=== PATIENT | male | born 1970 | race Caucasian/White ===

== ENCOUNTER → 2018-06-26 09:28 | Outpatient (CLI) | payer BC, SELFPAY ==
[2018-06-26 11:52] LABS: Absolute Lymphocyte Count 1.25 X10^3/ul (0.83-4.51); Absolute Neutrophil Count 3.5 X10^3/uL (2.0-7.7); Basophil# 0.02 X10^3/uL; Basophil% 0.4 % (0-1); Eosinophil# 0.05 X10^3/uL; Hematocrit 43.1 % (40-54); Hemoglobin 14.5 g/dl (13.0-16.5); Lymphocyte # 1.25 X10^3/ul (4.0); Lymphocyte % 24.4 % (19-41); Mean Corp Hgb Conc 33.6 g/gl (32-36); Mean Corpuscular Hgb 29.7 pg (27.0-32.0); Mean Corpuscular Volume 88.3 fL (80-94); Mean Platelet Vol. 10.1 fl (6.2-12.0); Monocyte# 0.35 X10^3/uL; Monocyte% 6.8 % (0-10); Neutrophil # 3.45 X10^3/uL (2.7-7.7); Neutrophil % 67.4 % (47-70); POSITIVE COUNT NO; POSITIVE DIFFERENTIAL NO; POSITIVE MORPHOLOGY NO; Platelet Count 285 K/mm3 (150-450); RBC Distribution Width CV 13.1 % (11.6-14.6); Red Blood Count 4.88 M/mm3 (4.6-6.2); White Blood Count 5.1 K/mm3 (4.4-11.0)
[2018-06-26 12:15] LABS: AST(SGOT) 19 U/L (15-37); Alanine Aminotransfer ALT/SGPT 35 U/L (16-61); Alkaline Phosphatase 39 U/L (45-117); Anion Gap 10 (5-15); BUN 23 mg/dL (7-18); BUN/Creat Ratio 23.5 RATIO (10-20); Calcium,Total 8.9 mg/dL (8.5-10.1); Chloride 105 mmol/L (98-107); Creatinine, Serum 0.98 mg/dL (0.70-1.30); EST Glomerular Filtration Rate 86 mL/min (>60); Est Glom Filt Rate - Afr Amer 104 mL/min (>60); Globulin 3.9 g/dL (2.2-4.2); Glucose 102 mg/dL (74-106); PSA,Total - Annual Screen 0.53 ng/mL (0.00-4.00); Potassium 4.2 mmol/L (3.5-5.1); Protein, Total 7.9 g/dL (6.4-8.2); Sodium Level 140 mmol/L (136-145); Thyroid Stim Hormone (TSH) 2.49 uIU/mL (0.358-3.74)
== END ==
PROVIDERS: Family Provider Family Medicine; PCP Family Medicine; Visit Provider Family Medicine
DX: I10 Essential (primary) hypertension (principal); Z80.42 Family history of malignant neoplasm of prostate
CPT/HCPCS: 36415; 80053; 84153; 84443; 85025; G0103

== ENCOUNTER → 2019-06-28 10:04 | Outpatient (CLI) | payer OTHER, SELFPAY ==
[2019-06-28 12:30] LABS: Absolute Lymphocyte Count 1.11 X10^3/uL (0.83-4.51); Absolute Neutrophil Count 2.9 X10^3/uL (2.0-7.7); Basophil# 0.03 X10^3/uL; Basophil% 0.7 % (0-1); Eosinophil# 0.08 X10^3/uL; Eosinophils% 1.8 % (0-5); Hematocrit 42.6 % (40-54); Hemoglobin 13.9 g/dL (13.0-16.5); Lymphocyte # 1.11 X10^3/ul (4.0); Lymphocyte % 24.9 % (19-41); Mean Corp Hgb Conc 32.6 g/dL (32-36); Mean Corpuscular Hgb 29.7 pg (27.0-32.0); Mean Platelet Vol. 10.5 fl (6.2-12.0); Monocyte# 0.34 X10^3/uL; Monocyte% 7.6 % (0-10); NRBC Flagged by Analyzer 0 % (0-5); Neutrophil # 2.89 X10^3/uL (2.7-7.7); Platelet Count 260 K/mm3 (150-450); RBC Distribution Width SD 43.3 fl (35.1-43.9); Red Blood Count 4.68 M/mm3 (4.6-6.2); White Blood Count 4.5 K/mm3 (4.4-11.0)
[2019-06-28 12:51] LABS: ALB/GLOB Ratio 1.1 RATIO (0.9-2.4); AST(SGOT) 56 U/L (15-37); Alanine Aminotransfer ALT/SGPT 52 U/L (16-61); Albumin, Serum 3.9 g/dL (3.2-5.0); Alkaline Phosphatase 35 U/L (45-117); Anion Gap 9 (5-15); BUN 17 mg/dL (7-18); BUN/Creat Ratio 18.2 RATIO (10-20); Calcium,Total 8.8 mg/dL (8.5-10.1); Chloride 103 mmol/L (98-107); Creatinine, Serum 0.93 mg/dL (0.70-1.30); EST Glomerular Filtration Rate 91 mL/min (>60); Est Glom Filt Rate - Afr Amer 110 mL/min (>60); Globulin 3.6 g/dL (2.2-4.2); Glucose 101 mg/dL (74-106); Potassium 3.9 mmol/L (3.5-5.1); Protein, Total 7.5 g/dL (6.4-8.2); Sodium Level 141 mmol/L (136-145); Thyroid Stim Hormone (TSH) 2.68 uIU/mL (0.358-3.74)
== END ==
PROVIDERS: Family Provider Family Medicine; PCP Family Medicine; Visit Provider Family Medicine
DX: I10 Essential (primary) hypertension (principal); Z80.42 Family history of malignant neoplasm of prostate; R68.82 Decreased libido
CPT/HCPCS: 36415; 80053; 84403; 84443; 85025

== ENCOUNTER → 2019-07-05 10:42 | Outpatient (CLI) | payer OTHER, SELFPAY ==
[2019-07-05 13:35] LABS: PSA,Total - Annual Screen 0.38 ng/mL (0.00-4.00)
== END ==
PROVIDERS: Family Provider Family Medicine; PCP Family Medicine; Visit Provider Family Medicine
DX: Z12.5 Encounter for screening for malignant neoplasm of prostate (principal); Z80.42 Family history of malignant neoplasm of prostate
CPT/HCPCS: 36415; 84153; G0103

== ENCOUNTER → 2020-10-13 16:44 | Outpatient (CLI) | payer OTHER, SELFPAY ==
[2020-10-13 17:26] LABS: Basophil# 0.03 X10^3/uL; Basophil% 0.4 % (0-1); Hematocrit 46.8 % (40-54); Hemoglobin 15.2 g/dL (13.0-16.5); Lymphocyte % 25.7 % (19-41); Mean Corp Hgb Conc 32.5 g/dL (32-36); Mean Corpuscular Hgb 29.5 pg (27.0-32.0); Mean Corpuscular Volume 90.7 fL (80-94); Mean Platelet Vol. 9.9 fl (6.2-12.0); Monocyte# 0.48 X10^3/uL; Monocyte% 6.5 % (0-10); NRBC Flagged by Analyzer 0 % (0-5); Neutrophil # 4.96 X10^3/uL (2.7-7.7); Neutrophil % 67.3 % (47-70); Platelet Count 281 K/mm3 (150-450); RBC Distribution Width CV 13.2 % (11.6-14.6); RBC Distribution Width SD 44.5 fl (35.1-43.9); Red Blood Count 5.16 M/mm3 (4.6-6.2); White Blood Count 7.4 K/mm3 (4.4-11.0)
[2020-10-13 18:09] LABS: ALB/GLOB Ratio 1.1 RATIO (0.9-2.4); AST(SGOT) 18 U/L (15-37); Alanine Aminotransfer ALT/SGPT 35 U/L (16-61); Albumin, Serum 4.4 g/dL (3.2-5.0); Alkaline Phosphatase 37 U/L (45-117); Anion Gap 5 (5-15); BUN 15 mg/dL (7-18); BUN/Creat Ratio 14.7 RATIO (10-20); Calcium,Total 9.6 mg/dL (8.5-10.1); Chloride 100 mmol/L (98-107); Creatinine, Serum 1.02 mg/dL (0.70-1.30); EST Glomerular Filtration Rate 82 mL/min (>60); Est Glom Filt Rate - Afr Amer 99 mL/min (>60); Glucose 98 mg/dL (74-106); PSA,Total - Annual Screen 0.63 ng/mL (0.00-4.00); Potassium 4.2 mmol/L (3.5-5.1); Protein, Total 8.4 g/dL (6.4-8.2); Sodium Level 136 mmol/L (136-145); T4 Free Direct 0.95 ng/dL (0.76-1.46); Thyroid Stim Hormone (TSH) 3.92 uIU/mL (0.358-3.74)
== END ==
LOC: BFHLAB 16:45
PROVIDERS: PCP Family Medicine; Visit Provider Family Medicine
DX: I10 Essential (primary) hypertension (principal); R00.0 Tachycardia, unspecified; R00.2 Palpitations; Z80.42 Family history of malignant neoplasm of prostate
CPT/HCPCS: 36415; 80053; 83735; 84153; 84439; 84443; 85025; G0103

== ENCOUNTER → 2020-12-23 08:05 | Outpatient (CLI) | payer OTHER, SELFPAY ==
--- NOTE | 2020-12-23 08:09 | ECHOD_ITS ---
Reason For Study: New onset abnormal EKG Procedure This was a 2D Doppler, Color Flow transthoracic echocardiogram. The study was technically difficult. Exam performed in department. Left Ventricle Normal LV size. Left ventricular systolic function is normal. The estimated ejection fraction is 65 %. Transmitral doppler flow suggestive of impaired relaxation of left ventricle. No regional wall motion abnormalities noted. Right Ventricle Normal RV size. Normal systolic function. Atria Normal left atrium. Normal right atrium. No doppler evidence for ASD. Mitral Valve There is no mitral annular calcification. Normal mitral valve. Trivial mitral valve insufficiency. Tricuspid Valve Normal tricuspid valve. Trivial tricuspid valve insufficiency. Unable to estimate RV systolic pressure/pulmonary artery pressure due to technically difficult study. Aortic Valve Trisinus/trileaflet aortic valve. Mild focal aortic valve calcification. Pulmonic Valve The pulmonic valve is not well visualized. Great Vessels Mildly dilated aortic root. Pericardium/Pleural No pericardial effusion. MMode/2D Measurements & Calculations LVIDd: 4.2 cm IVSd: 0.90 cm Ao root diam: 4.3 cm LVIDs: 2.4 cm LVPWd: 0.96 cm LA dimension: 3.2 cm RVDd: 4.0 cm FS: 44.5 % LAV(MOD-bp): 46.1 ml LA A4 area: 15.4 cm2 RA A4 area: 15.9 cm2 LAV(MOD-bp) Indexed: 20.6 ml/m2 LAV(MOD-sp2): 44.4 ml LAV(MOD-sp4): 42.2 ml Time Measurements MV dec time: 0.39 sec Doppler Measurements & Calculations MV E max chao: 55.9 cm/sec Lat Peak E' Chao: 9.8 cm/sec Med Peak E' Chao: 7.3 cm/sec MV A max chao: 61.6 cm/sec E/E' lat: 5.7 E/E' med: 7.7 MV E/A: 0.91 MV V2 max: 64.7 cm/sec MV P1/2t max chao: 63.4 cm/sec Ao V2 max: 110.0 cm/sec MV max P.7 mmHg MV P1/2t: 76.5 msec Ao max P.9 mmHg MV V2 mean: 39.4 cm/sec MV dec slope: 242.9 cm/sec2 MV mean P.74 mmHg MVA(P1/2t): 2.9 cm2 MV V2 VTI: 19.1 cm LV V1 max: 87.6 cm/sec PA V2 max: 101.9 cm/sec LV V1 max P.2 mmHg ECHO/Echo Complete Interpretation Summary The study was technically difficult. Left ventricular systolic function is normal. The estimated ejection fraction is 65 %. Trivial mitral valve insufficiency. Trivial tricuspid valve insufficiency. Mild focal aortic valve calcification. Mildly dilated aortic root. Unable to estimate RV systolic pressure/pulmonary artery pressure due to techni robina difficult study. Transmitral doppler flow suggestive of impaired relaxation of left ventricle Ordering Physician: Jfef Collins Referring Physician: Jeff Collins Performed By: Elier Peoples RCS
== END ==
LOC: CVS 08:08
PROVIDERS: PCP Family Medicine; Referring Provider Family Medicine; Visit Provider Family Medicine
DX: R00.2 Palpitations (principal); I49.9 Cardiac arrhythmia, unspecified; I49.3 Ventricular premature depolarization
CPT/HCPCS: 93306

== ENCOUNTER → 2021-03-24 20:24 | Outpatient (CLI) | payer OTHER, SELFPAY ==
[2021-02-01 07:53] VITALS: BMI 28.0
== END ==
LOC: SL 20:24
PROVIDERS: PCP Family Medicine; Referring Provider Nurse Practitioner Acute Care; Visit Provider Nurse Practitioner Acute Care
DX: G47.33 Obstructive sleep apnea (adult) (pediatric) (principal)
CPT/HCPCS: 95811

== ENCOUNTER 2021-05-22 12:34 | Emergency (ER) | payer BC, SELFPAY ==
[2021-05-22 12:34] VITALS: BP 183/106; PULSE 83; RESP 16; TEMP 36.2; O2SAT 97; BMI 28.5
--- NOTE | 2021-05-22 13:17 | EX.ED.UPPERE ---
HPI History of Present Illness HPI Narrative: Patient presents with laceration to his left thumb that occurred today. Patient was using a boxing promoter when it slipped and he accidentally cut his left thumb. Patient denies any paresthesias or weakness. Patient states the bleeding has been persistent. Patient denies any foreign bodies. Patient states it was a clean blade and the boxing promoter. Patient is unsure of his last tetanus but thinks it was more than 10 years ago. Chief Complaint: Laceration Informant: patient Onset/Context/Timing Onset: Today Context: Sudden Onset Quality of Pain: Throbbing Location: Left thumb Worsened by: Nothing Relieved by: Elevation Associated Symptoms Associated Symptoms: Negative for Parasthesia, Weakness and Loss of Funtion Narrative Tetanus Immunization: >10 years PFSH PFSH Medical History Essential (primary) hypertension ZITA (obstructive sleep apnea) Prostate cancer Home Medications lisinopril 10 mg-hydrochlorothiazide 12.5 mg tablet 1 tab PO DAILY 02/01/21 [History Last Taken Unknown] Allergy/AdvReac Type Severity Reaction Status Date / Time No Known Allergies Allergy Verified 05/22/21 12:36 Family History Other Cancer Colon cancer Surgical History Hx of reconstruction of anterior cruciate ligament tear Social History Smoking Status: Never smoker ROS ROS ED Constitutional Constitutional ED: Denies chills or fever(s) Eyes Eyes: Denies blurry vision or change in vision ENT ENT ED: Denies rhinorrhea or sore throat Cardiovascular Cardiovascular: Denies chest pain or palpitations Respiratory/Chest Respiratory/Chest: Denies cough or dyspnea Gastrointestinal Gastrointestinal: Denies nausea or vomiting Genitourinary Genitourinary ED: Denies dysuria or hematuria Musculoskeletal Musculoskeletal: Denies back pain or neck pain Integumentary Denies abscess or rash Neurologic Neurologic: Denies headache(s) or weakness Allergic/Immunologic Allergic/Immunologic ED: Denies mouth swelling or urticaria EXAM Physical Exam Const Vital Signs: 05/22/21 12:34 Temperature 97.2 F L Temperature Source Temporal Pulse Rate 83 Respiratory Rate 16 Blood Pressure 183/106 H Blood Pressure Mean 131 Pulse Ox 97 Oxygen Delivery Method Room Air Positive well nourished and well developed General Appearance ED: well developed HEENT Reports moist mucous membranes Neck full ROM and supple Extremity Extremity Narrative: There is a 2.3 cm full-thickness linear laceration over the dorsal aspect of the left thumb near the IP joint and distally. There is no foreign body noted. There is moderate gapping of the wound margins. There is some mild bleeding noted. Strength is 5/5 in flexion and extension of the IP joint. There are no sensory deficits noted. Neuro oriented x3, CN's II-XII intact bilaterally, moves all extremities, no focal motor deficits and no sensory deficits noted Sensorium / Orientation: alert Psych mental status grossly normal MDM MDM MDM Narrative Medical decision making narrative: Patient was given tetanus booster here. The wound was cleaned and irrigated with copious amounts of normal saline. The wound was anesthetized with [1% plain lidocaine] [via digital block]. The wound was closed with 4 [simple interrupted] #4-0 [nylon] sutures under sterile technique. Patient tolerated the procedure well. Bacitracin dressing was applied. Patient was instructed to keep wound clean and dry. Patient was instructed to follow-up with his primary care physician in 5 to 7 days for wound recheck and suture removal. Patient understood and was agreeable with the plan. All questions were answered. Discharge Plan Triage Chief Complaint: Laceration ED Provider: Walter Leon Dx/Rx/DC Orders Clinical Impression: Laceration of left thumb Instructions: ED Laceration, Hand: All Closures Prescriptions: No Action lisinopril-hydrochlorothiazide 10-12.5 mg tablet 1 tab PO DAILY RF: 0 Primary Care Provider: Jeff Collins Referrals: Jeff Collins MD [Primary Care Provider] - 7 Days for suture removal Disposition Disposition: Home, Self Care
[2021-05-22] MEDS: Diphth,Pertuss(Acell),Tet Vac 0.5 ML Vial IM (13:40)
[2021-05-22] MEDS: Lidocaine 1% (20 ml mdv) 20 ML Vial INFILT (15:24)
== END 2021-05-22 15:25 | disposition home or self-care (01) ==
PROVIDERS: Emergency Provider Emergency Medicine; PCP Family Medicine
DX: S61.012A Laceration without foreign body of left thumb without damage to nail, initial encounter (principal); W27.8XXA Contact with other nonpowered hand tool, initial encounter; Y93.9 Activity, unspecified; Y92.9 Unspecified place or not applicable; Y99.9 Unspecified external cause status; Z23 Encounter for immunization; I10 Essential (primary) hypertension; G47.33 Obstructive sleep apnea (adult) (pediatric); Z79.899 Other long term (current) drug therapy; Z85.46 Personal history of malignant neoplasm of prostate
CPT/HCPCS: 12001; 90471; 90715; 99284

== ENCOUNTER → 2025-05-21 | Outpatient (CLI) | payer OTHER, SELFPAY ==
--- NOTE | 2025-05-21 10:29 | RAD_ITS ---
EXAM: XR Left Knee Complete, 4 or More Views CLINICAL INDICATION: PAIN IN KNEE TECHNIQUE: Four or more views of the left knee. COMPARISON: No relevant prior studies available. FINDINGS: BONES/JOINTS: Mild degenerative changes of the patellofemoral joint space. Evidence of prior ligamentous repair. Mild degenerative changes of the medial compartment the knee joint. No acute fracture. No dislocation. SOFT TISSUES: Soft tissue swelling. RAD/Knee 4 or More Views IMPRESSION: Degenerative changes as above. Reading Location: [id number]
[2025-05-21 12:29] LABS: Hematocrit 46.2 % (40-54); Hemoglobin 16.0 g/dL (13.0-16.5); Immature Granulocytes Count 0.000 X10^3/uL (0.0-0.0); Mean Corp Hgb Conc 34.6 g/dL (32-36); Mean Corpuscular Volume 91.7 fL (80-94); Mean Platelet Vol. 9.9 fl (6.2-12.0); NRBC Flagged by Analyzer 0 % (0-5); Platelet Count 296 K/mm3 (150-450); RBC Distribution Width CV 12.8 % (11.6-14.6); RBC Distribution Width SD 43.1 fl (35.1-43.9); Red Blood Count 5.04 M/mm3 (4.6-6.2); White Blood Count 5.0 K/mm3 (4.4-11.0)
[2025-05-21 13:05] LABS: AST(SGOT) 33 U/L (<=37); Alanine Aminotransfer ALT/SGPT 40 U/L (<=46); Albumin, Serum 4.7 g/dL (3.5-5.0); Alkaline Phosphatase 46 U/L (40-129); Anion Gap 14 (5-15); BUN 13 mg/dL (4-19); BUN/Creat Ratio 13.5 RATIO (10-20); Calcium,Total 9.9 mg/dL (7.6-11.0); Carbon Dioxide 24.4 mmol/L (21.0-32.0); Chloride 99 mmol/L (98-108); Cholesterol 335 mg/dL (<=200); Ferritin 177 ng/mL (37-417); Globulin 3.4 g/dL (2.2-4.2); Glucose 115 mg/dL (70-99); Low Density Lipoprotein Calc. 223 mg/dL; PSA,Total - Annual Screen 0.54 ng/mL (0.02-4.00); Potassium 4.2 mmol/L (3.3-5.1); Triglycerides 255 mg/dL; Very Low Density Lipoprotein 51 mg/dL (5-40); Vitamin B12 302 pg/mL (180-914); Vitamin D,25 Hydroxy 45.8 ng/mL (30-100); cholesterol:hdl ratio screen 5.46
[2025-05-21 14:09] LABS: Iron 148 ug/dL (65-175)
== END | disposition home or self-care (01) ==
LOC: MTLAB 10:27
PROVIDERS: PCP Nurse Practitioner Family; Referring Provider Nurse Practitioner Family; Visit Provider Nurse Practitioner Family
DX: Z00.01 Encounter for general adult medical examination with abnormal findings (principal); M25.562 Pain in left knee; R53.83 Other fatigue; R73.01 Impaired fasting glucose; Z12.5 Encounter for screening for malignant neoplasm of prostate
CPT/HCPCS: 36415; 73564; 80053; 80061; 82306; 82607; 82728; 83036; 83540; 84153; 84403; 84439; 84443; 85025; G0103